=== PATIENT | female | born 1935 | race Two or more races ===

== ENCOUNTER 2016-09-28 18:22 | Inpatient (IN) | payer BC, SELFPAY ==
--- NOTE | ~2016-09-28 | OP ---
Record Of Operation [facility] [address] [place]. [address] NAME: MK CAMPO : 35 STATUS : ADM IN PAT#: [id number] AGE: 81 ADM/REG DATE : 09/28/16 MR#: [id number] REPORT SERV DATE: 09/29/16 DICTATED BY: KAYLA ZAYAS DATE: 09/29/16 REPORT STATUS : Draft TRANSCRIBED BY: MODCora DATE: 09/29/16 DATE OF PROCEDURE: 09/29/2016 INDICATION: Chest pain, shortness of breath in a patient with history of coronary artery disease status post previous bypass and elevated troponins. PROCEDURE: Left heart catheterization, coronary arteriography, left ventriculography, left internal mammary arteriography. DESCRIPTION OF PROCEDURE: After informed consent was obtained, the patient was taken in the fasting state to the cardiac catheterization laboratory where she was prepped and draped in sterile fashion. IV moderate sedation was obtained using intravenous Versed and fentanyl. The right inguinal region was anesthetized using 1% Xylocaine. The right femoral artery was then entered using a front-wall approach and cannulated with a 6-[place] arterial sheath. A 6-[place] JR4 diagnostic catheter was then advanced to the left subclavian, however, would not adequately engage the left internal mammary artery. It was then used to engage the right coronary artery. Serial angiograms were obtained. The catheter was then exchanged for an JANICE catheter, which would not pass into the subclavian. It was withdrawn and the JR4 catheter was used with an exchange length J-wire to engage the vessel. The internal mammary artery catheter was then positioned and engaged. Serial angiograms of left internal mammary artery were obtained. This catheter was then exchanged for a 6-[place] JL4 diagnostic catheter, which was used to engage the left main coronary artery. Serial angiograms of this vessel were obtained. This catheter was then exchanged for a 6-[place] angled pigtail catheter, which was used to cross the aortic valve, at which time hemodynamic pressure tracings were obtained. This catheter was then withdrawn back across the aortic valve with no significant aortic transvalvular gradient. Results of study are as follows. HEMODYNAMICS: Aorta 134/45 with a mean pressure of 74 mmHg. Left ventricle 134/53 with an end-diastolic pressure of 14 mmHg. LEFT VENTRICULOGRAM: Not performed secondary to borderline renal function. CORONARY ARTERIOGRAPHY: 1. Left main coronary artery: The left main coronary artery arises normally from left coronary cusp. This vessel is normal. 2. Left anterior descending artery: The left anterior descending artery arises normally from left main coronary artery. This vessel is diffusely diseased in the proximal segment with an approximately 70% stenosis noted between the first and diagonal arteries. 3. The left internal mammary artery to the mid LAD is widely patent with SHABNAM-3 grade flow. 4. Left circumflex artery: The left circumflex artery arises normally from left main coronary artery. This vessel is nondominant. This vessel gives off a fairly large caliber first obtuse marginal branch, which has a 40%-50% ostial stenosis. The remainder of the vessel has diffuse luminal irregularities of 30%. 5. Right coronary artery: The right coronary artery arises normally from the right Record Of Operation [facility] [address] [place]. [address] NAME: MK CAMPO : 35 STATUS : ADM IN [facility]#: [id number] AGE: 81 ADM/REG DATE : 09/28/16 MR#: [id number] REPORT SERV DATE: 09/29/16 DICTATED BY: KAYLA ZAYAS DATE: 09/29/16 REPORT STATUS : Draft TRANSCRIBED BY: MODL DATE: 09/29/16 coronary cusp. This vessel is dominant. This vessel is diffusely diseased with luminal irregularities of 30% to 40% throughout the vessel. A stent is noted in the proximal posterolateral artery. It is widely patent. There is a 30%-40% stenosis of the vessel distal to the stent. COMPLICATIONS: There were no apparent complications. CONCLUSIONS: 1. Multivessel coronary artery disease as described above. 2. Patent MOLINA to mid LAD. 3. Known occluded KAREY to the first obtuse marginal artery. 4. Widely patent posterolateral artery stent. 5. Normal hemodynamics. Widened aortic pulse pressure noted. 6. Plans are made for continued medical management. We will also proceed with CTA of the chest in a patient with chest pain, shortness of breath, and elevated troponin with no culprit lesion found on coronary angiography. 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 7. No apparent complications. SA/REUBENL Kayla Zayas M.D., [facility] / [id number] CC: Kayla Zaays M.D., [facility] SERGEY Hobbs M.D. Steven Stubblefield, M.D., F.A.C.C.
--- NOTE | ~2016-09-28 | HP ---
History And Physical [address] [place]. [address] NAME: MK HOFFMANN : 35 STATUS : ADM IN [facility]#: [id number] AGE: 81 ADM/REG DATE : 09/28/16 MR#: [id number] REPORT SERV DATE: 09/29/16 DICTATED BY: KAYLA ZAYAS DATE: 09/29/16 REPORT STATUS : Draft TRANSCRIBED BY: MODCora DATE: 09/29/16 DATE OF ADMISSION: 09/28/2016 HISTORY OF PRESENT ILLNESS: Ms. Mk Hoffmann is an 81-year-old female with past medical history significant for coronary artery disease, status post previous bypass in 2010, status post stent by Dr. Holcomb in 2016. She presented to the emergency room 12 hours after awakening with severe shortness of breath and some substernal chest tightness. The patient reports that the night before she had done a little more housework than usual. She otherwise notes no difference in activity. She reports that this is the first episode that she experienced in that it lasted approximately three hours. It was nine more hours before she presented to the emergency room, where she was found to have an elevated troponin at 0.39. She has a left bundle-branch block, which is chronic. REVIEW OF SYSTEMS: The patient denies any orthopnea, paroxysmal nocturnal dyspnea, except as per HPI. She denies any syncope or presyncope. She denies any previous chest pain. She does report that yesterday she had some "shakiness." She denies any gastrointestinal complaints, except for unintentional weight loss. She denies any genitourinary or respiratory complaints, except as per above. PAST MEDICAL HISTORY: As noted above significant for coronary artery disease. The patient had bypass in 2010. Subsequent catheterization showed a restenosis in 2015 requiring a stent in the right coronary artery. The patient at that time was found to have an occluded KAREY to the obtuse marginal artery. She had a patent MOLINA to the LAD. Echocardiogram in 08/2015 showed an ejection fraction of 35% to 40% with mild mitral insufficiency. Ejection fraction by left ventriculogram which was performed during catheterization in 10/2015 showed an ejection fraction of 60%. The patient also with a history diabetes mellitus type 2. She has a history of hypertension. She has a history of left bundle-branch block. FAMILY HISTORY: Noncontributory. SOCIAL HISTORY: The patient does not smoke. MEDICATIONS: See list. ALLERGIES: THE PATIENT HAS NO KNOWN DRUG ALLERGIES. PHYSICAL EXAMINATION: VITAL SIGNS: Blood pressure 131/60, pulse 71, respiratory rate 18. The patient is afebrile. GENERAL: This is a well-developed and well-nourished 81-year-old female, alert and oriented x3, in no acute distress. NECK: No jugular venous distention, hepatojugular reflux, or carotid bruits. CARDIOVASCULAR: Normal rate with regular rhythm, 2/6 systolic murmur heard best at the left upper sternal border. LUNGS: Clear to auscultation without wheezes, rales, or rhonchi. History And Physical [address] [address] NAME: MK HOFFMANN : 35 STATUS : ADM IN [facility]#: [id number] AGE: 81 ADM/REG DATE : 09/28/16 MR#: [id number] REPORT SERV DATE: 09/29/16 DICTATED BY: KAYLA ZAYAS DATE: 09/29/16 REPORT STATUS : Draft TRANSCRIBED BY: MAGALY DATE: 09/29/16 ABDOMEN: Soft, nontender, and nondistended. Positive bowel sounds. EXTREMITIES: Without clubbing, cyanosis, or edema. LABORATORY STUDIES: EKG shows a left bundle-branch block. Troponin is elevated at 0.39; potassium is low at 3.3; and hematocrit is low at 30. ASSESSMENT: 1. Acute coronary syndrome/[id number] elevation myocardial infarction. 2. Coronary artery disease. 3. Diabetes mellitus type 2. 4. Left bundle-branch block. 5. Hypertension. 6. Anemia. 7. Hypokalemia. 8. Mild mitral insufficiency. PLAN: 1. See orders. 2. Proceed with left heart catheterization and possible PCI in this patient with known coronary disease and elevated troponin. I have discussed risks and benefits of the procedure with the patient, who agrees to proceed. /MAGALY Kayla Zayas M.D., [facility] / [id number] CC: Kayla Zayas M.D., [facility] Kayla Holcomb M.D., F.Katie.C.China Mcgarry M.D.
[~2016-09-28 18:22] MED LIST: ASAB PO; BRILINTA90 MG PO; CALTRAT600 PO; CEFT5 PO; COREG3 PO; COZ25 PO; FISH-EPA1000 MG PO; HUMALOG SC; INSNOVR SC; IRON PO; ISORDTAB5 PO; KLOR-CON 1010 MEQ PO; L20 PO; LANTUS SC; LIPITOR40 PO; LOFIB160 PO; MAGOX4 PO; MULTIVITAMI1 PO; NEUR100 PO; OS500+D; PEP20 PO; PERCOCET1 TA4 PO; PRIN20 PO; PRIN5 PO; PYR200 PO; ROBITUSS11 OR; TYLENOL ARTH650 MG PO; ULTRAM50 PO; VERELAN180 MG PO; VICODINTAB PO; VITAMIN B PO; VITAMIN D31000 UNIT PO; VITC500 PO; WOMENS MULTIVITAMIN PO; XALAT OPH; ZOCOR40 PO; [UNRECOGNIZED DRUG - OTHER] PO
[2016-09-28] MEDS ORDERED: LANTUS SC ×2 (19:30→21:47)
[2016-09-28] MEDS ORDERED: VICTOZA18 MG/3 ML SC (19:30)
[2016-09-28] MEDS ORDERED: NOVOLOG SC (19:30)
[2016-09-28] MEDS ORDERED: SYN075 PO (19:31)
[2016-09-28] MEDS ORDERED: BACLOFEN20 MG PO (19:31)
[2016-09-28] MEDS ORDERED: LIOR10 PO (19:32)
[2016-09-28] MEDS ORDERED: LEXAPRO20 PO (19:32)
[2016-09-28] MEDS ORDERED: NEXIUM40 PO (19:32)
[2016-09-28] MEDS ORDERED: L40 PO (19:32)
[2016-09-28] MEDS ORDERED: ASAB PO ×2 (19:33→21:12)
[2016-09-28] MEDS ORDERED: DIOV160 PO (19:33)
[2016-09-28] MEDS ORDERED: FISH-EPA1000 MG PO (19:34)
[2016-09-28] MEDS ORDERED: BUSPAR5 PO (19:34)
[2016-09-28] MEDS ORDERED: NEUR300 PO (19:34)
[2016-09-28] MEDS ORDERED: CALTRA600D PO ×2 (19:34→21:18)
[2016-09-28] MEDS ORDERED: PROLOP100 PO (19:35)
[2016-09-28] MEDS ORDERED: NASACORTAQ NAS (19:35)
[2016-09-28] MEDS ORDERED: BEN25 PO (19:35)
[2016-09-28] MEDS ORDERED: MACROBID PO (19:36)
[2016-09-28] MEDS ORDERED: OXYCOD PO ×2 (19:50)
[2016-09-28] MEDS ORDERED: COREG3 PO (21:16)
[2016-09-28] MEDS ORDERED: COZ25 PO (21:16)
[2016-09-28] MEDS ORDERED: CENTRUM PO (21:17)
[2016-09-28] MEDS ORDERED: ISORDTAB5 PO (21:17)
[2016-09-28] MEDS ORDERED: VITAMIN D1000 UNI1 PO (21:19)
[2016-09-28] MEDS ORDERED: *UNABLE3 (21:19)
[2016-09-28] MEDS ORDERED: KDUR10 PO (21:19)
[2016-09-28] MEDS ORDERED: L20 PO (21:20)
[2016-09-28] MEDS ORDERED: LOFIBRA134 MG PO (21:20)
[2016-09-28] MEDS ORDERED: XALAT OPH (21:20)
[2016-09-28] MEDS ORDERED: BRILINTA90 MG PO (21:20)
[2016-09-28] MEDS ORDERED: VITAMIN C PO (21:46)
[2016-09-28] MEDS ORDERED: HUMALOG SC (21:47)
[2016-09-29 06:45] LABS: BASOPHILS 0 %; EOSINOPHILS 2.1 %; EOSINOPHILS ABSOLUTE 0.09 10/3/uL (0.0-0.53); HEMOGLOBIN 10.3 g/dL (12.0-16.0); IMMATURE GRANULOCYTES 0.2 %; IMMATURE GRANULOCYTES ABSOLUTE 0.01 10/3/uL (0.0-0.11); LYMPHOCYTES 14.5 %; LYMPHOCYTES ABSOLUTE 0.63 10/3/uL (0.67-4.30); MEAN CORPUS HGB CONC 34.3 g/dL (32.0-36.0); MEAN CORPUSCULAR HEMOGLOB 30.8 pg (26.0-34.0); MEAN CORPUSCULAR VOLUME 89.8 fL (80-100); MEAN PLATELET VOLUME 11.1 fL (9.2-13.0); MONOCYTES 9.4 %; MONOCYTES ABSOLUTE 0.41 10/3/uL (0.21-1.20); NEUTROPHILS 73.8 %; NEUTROPHILS ABSOLUTE 3.21 10/3/uL (2.02-8.40); PLATELET COUNT 177 10/3/uL (150-400); RBC DISTRIBUTION WIDTH 13.5 % (12.0-16.0); RED CELL COUNT 3.34 10/6/uL (4.0-5.6); WHITE BLOOD CELLS 4.4 10/3/uL (4.5-10.5)
[2016-09-29 06:48] LABS: MANUAL DIFF NO %
[2016-09-29 16:47] LABS: CREATININE 0.96 MG/DL (0.55-1.02)
[2016-09-30 14:13] LABS: CALCIUM, SERUM 8.9 MG/DL (8.5-10.4); CHLORIDE, SERUM 106 MMOL/L (96-112); CO2 (CARBON DIOXIDE) 28 MMOL/L (24-34); CREATININE 1.12 MG/DL (0.55-1.02); GFR AFRICAN AMERICAN 53 ML/MIN (>=60); GFR NON AFRICAN AMERICAN 46 ML/MIN (>=60); POTASSIUM, SERUM 3.9 MMOL/L (3.5-5.3); SODIUM, SERUM 141 MMOL/L (135-148)
[2016-09-30 14:14] LABS: BUN (BLOOD UREA NITROGEN) 29 MG/DL (6-23); GLUCOSE, SERUM 172 MG/DL (60-99)
[2016-09-30] MEDS ORDERED: NORCO1 TA2 PO (19:15)
[2016-10-07] MEDS ORDERED: DSS PO (11:21)
[2016-10-07] MEDS ORDERED: LEVAQUIN750 MG PO (11:22)
[2016-10-07] MEDS ORDERED: T PO (11:23)
[2016-10-07] MEDS ORDERED: DIL2TAB PO (11:26)
== END 2016-09-30 21:45 | disposition home or self-care (01) | DRG 287 ==
LOC: 5NO 18:22
PROVIDERS: Internal Medicine Interventional Cardiology
PROC: 4A023N7 Measurement of Cardiac Sampling and Pressure, Left Heart, Percutaneous Approach (ICD-10-PCS; principal; 2016-09-29)
PROC: B2111ZZ Fluoroscopy of Multiple Coronary Arteries using Low Osmolar Contrast (ICD-10-PCS; 2016-09-29)
PROC: B2181ZZ Fluoroscopy of Left Internal Mammary Bypass Graft using Low Osmolar Contrast (ICD-10-PCS; 2016-09-29)
DX: I25.110 Atherosclerotic heart disease of native coronary artery with unstable angina pectoris (principal); I50.22 Chronic systolic (congestive) heart failure; E11.9 Type 2 diabetes mellitus without complications; I11.0 Hypertensive heart disease with heart failure; Z95.5 Presence of coronary angioplasty implant and graft; Z95.1 Presence of aortocoronary bypass graft; I44.7 Left bundle-branch block, unspecified; E87.6 Hypokalemia; I34.0 Nonrheumatic mitral (valve) insufficiency; I25.2 Old myocardial infarction; Z90.710 Acquired absence of both cervix and uterus; F41.9 Anxiety disorder, unspecified
CPT/HCPCS: 71010; 71275; 80048; 80061; 82565; 82962; 83735; 84460; 84484; 85025; 85347; 85379; 85610; 85730; 93005; 93306; 93459; 96365; 96375; 99152; 99153; 99291; A9270-GY; C1769; C1894; J2250; J2405; J3010; Q9967